=== PATIENT | male | born 1940 | race Caucasian/White ===

== ENCOUNTER 2024-11-08 15:28 | Outpatient (CLI) | payer OTHER | END 2024-11-08 15:29 | disposition home or self-care (01) | LOC: CSHWCC 15:28 | PROVIDERS: ATTEND Nurse Practitioner Family | DX: M27.2 Inflammatory conditions of jaws (principal); R91.1 Solitary pulmonary nodule | CPT/HCPCS: G0277 ==

== ENCOUNTER 2024-12-12 09:11 | Outpatient (CLI) | payer OTHER ==
[2024-12-12 10:27] LABS: Hematocrit 39.8 % (38.8-50.0); Hemoglobin 12.7 g/dL (13.5-17.5); Mean Corpuscular Hemoglobin 28.1 pg (27.0-33.0); Mean Corpuscular Volume 88.1 fL (81.2-95.1); Platelet Count 235 10x3/uL (150-450); Red Blood Cell (RBC) Count 4.52 10x6/uL (4.32-5.72); White Blood Cell (WBC) Count 8.09 10x3/uL (3.5-10.5)
[2024-12-12 11:16] LABS: Anion Gap 13 mmol/L (10-20); BUN (Urea Nitrogen) 21 mg/dL (8.4-25.7); Calc. Creatinine Clearance 0 mL/min (70-130); Calcium 9.1 mg/dL (7.8-10.44); Carbon Dioxide 27 mmol/L (23-31); Chloride 103 mmol/L (98-107); Glucose 93 mg/dL (83-110); Potassium 4.2 mmol/L (3.5-5.1); Sodium 139 mmol/L (136-145)
== END 2024-12-12 09:12 | disposition home or self-care (01) ==
LOC: CSHLAB 09:11
PROVIDERS: ATTEND Student in an Organized Health Care Education/Training Program
DX: Z01.818 Encounter for other preprocedural examination (principal); M27.2 Inflammatory conditions of jaws
CPT/HCPCS: 71046; 80048; 85027; 93005; 93010

== ENCOUNTER 2024-12-18 05:31 | Day surgery (SDC) | payer OTHER ==
[2024-12-12 09:50] VITALS: BMI 22.4
[2024-12-18] MEDS ORDERED: Chlorhexidine Gluconate 15 ML UDCUP SSP ONE (06:26)
[2024-12-18] MEDS ORDERED: Lidocaine 1% w/Epinephrine 1:200K 30 ML VIAL ONE (06:26)
[2024-12-18] MEDS ORDERED: AFRIN NASAL MIST 15 ML BOT ONE (06:47)
[2024-12-18] MEDS ORDERED: CEFAZOLIN 2 GM VIAL ONE (06:50)
[2024-12-18] MEDS ORDERED: PROPOFOL 20 ML ONE (06:51)
[2024-12-18] MEDS ORDERED: Lidocaine 1% PF 5 ML VIAL ONE (06:52)
[2024-12-18] MEDS ORDERED: Rocuronium Bromide 10 MG/ML (10ML VIAL) ONE (06:52)
[2024-12-18] MEDS ORDERED: PHENYLEPHRINE-NS 100 MCG/ML 10 ML SYRINGE ONE (07:20)
[2024-12-18] MEDS ORDERED: SUGAMMADEX SODIUM 200 MG/2 ML VIAL ONE (07:53)
[2024-12-18] MEDS ORDERED: Ondansetron PF 4 MG/2 ML Vial ONE (07:53)
== END 2024-12-18 10:03 | disposition home or self-care (01) ==
LOC: CSHSDC 05:31
PROVIDERS: ATTEND Student in an Organized Health Care Education/Training Program
PROC: 0CDWXZ1 Extraction of Upper Tooth, Multiple, External Approach (ICD-10-PCS; principal; 2024-12-18)
PROC: 0HX1XZZ Transfer Face Skin, External Approach (ICD-10-PCS; 2024-12-18)
DX: M27.2 Inflammatory conditions of jaws (principal); I10 Essential (primary) hypertension; I48.91 Unspecified atrial fibrillation; Z95.0 Presence of cardiac pacemaker; Z90.89 Acquired absence of other organs; Z91.041 Radiographic dye allergy status; Z91.013 Allergy to seafood; Z88.6 Allergy status to analgesic agent
CPT/HCPCS: 41899; 14040; 87070; 87075; 87076; 87077; 87186; 87205; C1713; J1100; J2405; J2704; J3010